=== PATIENT | female | born 1940 | race Caucasian/White ===

== ENCOUNTER → 2018-09-19 | Outpatient (CLI) | payer MEDICARE, OTHER ==
[2014-06-02 11:55] VITALS: BP 117/60
[~2018-09-19] MED LIST: GABA-587 PO; GLIM1TAB2 PO; OMEP20CA10 PO; SIMV40TA3 PO; SITA100T PO
--- NOTE | 2018-09-19 15:37 | RAD ---
Gastric Emptying Study 09/19/2018 Indication: Gastroparesis Procedure: Anterior and posterior projection static images are obtained over the stomach following oral administration of 2 mCi of 99 M technetium sulfur colloid in a solid meal (egg and toast). Time points include an immediate baseline, and 1, 2, 3, and 4 hours post ingestion. Findings: There is progressive emptying of the stomach on sequential images. Percentage retention at... One hour is 80.4% (normal 34.8-91%). Two hours 65% (normal 2.7-60%). Three hours 55% (normal 0.5-28%). Four hours 33% (normal 0-10%). Impression: Elevated gastric retention at T2-4 hours consistent with moderately delayed gastric emptying Consensus Recommendations for Gastric Emptying Scintigraphy: A Joint Report of the [place] [employer]astro[employer] Society and the Society of Nuclear Medicine: J. Nucl. Med. Technol. June 2007 vol. 36 no. 1 44-54 Grading for severity of delayed GE based on the 4-h value: grade 1 (mild): 11?20% retention at 4 h grade 2 (moderate): 21?35% retention at 4 h grade 3 (severe): 36?50% retention at 4 h grade 4 (very severe): >50% retention at 4 h. Electronically signed by: Chandu Brown MD (09/19/2018 3:34 PM) [id number]
== END | disposition home or self-care (01) ==
LOC: NM 09:01
PROVIDERS: ATTEND Internal Medicine Gastroenterology
DX: K31.89 Other diseases of stomach and duodenum (principal); K31.84 Gastroparesis; I10 Essential (primary) hypertension; E11.9 Type 2 diabetes mellitus without complications; Z87.891 Personal history of nicotine dependence
CPT/HCPCS: 78264; A9503

== ENCOUNTER → 2019-04-17 | Outpatient (CLI) | payer OTHER, MEDICAID ==
[2019-04-17] VITALS (7 sets, daily range): BP systolic 115–132; BP diastolic 51–97
[~2019-04-17] MED LIST changes: -GLIM1TAB2 PO; +GLIM1TAB7 PO; +IOHEXOL 240 MG/ML 50ML VIAL. ONE; +IOHEXOL 300 MG/ML 50 ML VIAL. IV ONE; +IV NORMAL SALINE 1,000ML 1,000 ML IV ONE; -OMEP20CA10 PO; +OMEP20CA16 PO; +SIMV40TA18 PO; -SIMV40TA3 PO
[2019-04-17 14:59] LABS: BASO # 0.1 x10^3/uL (0.0-0.2); BASO % 1 % (0-3); EOS # 0.1 x10^3/uL (0.0-0.7); EOS % 1 % (0-3); HEMATOCRIT 34.3 % (36.0-47.0); HEMOGLOBIN 10.8 g/dL (12.0-15.5); LYMPH # 1.7 x10^3/uL (1.0-4.8); LYMPH % 20 % (24-48); MEAN CORPUSCULAR HEMOGLOBIN 27 pg (25-35); MEAN CORPUSCULAR HGB CONC 32 g/dL (31-37); MEAN CORPUSCULAR VOLUME 87 fL (79-100); MONO % 11 % (0-9); NEUT # 5.9 x10^3uL (1.8-7.7); NEUT % 67 % (31-73); PLATELET COUNT 326 x10^3/uL (140-400); RED BLOOD COUNT 3.94 x10^6/uL (3.50-5.40); RED CELL DISTRIBUTION WIDTH 16.8 % (11.5-14.5); WHITE BLOOD COUNT 8.8 x10^3/uL (4.0-11.0)
[2019-04-17 15:00] LABS: CREATININE 1.6 mg/dL (0.6-1.0); GFR 31.1; POTASSIUM 5.1 mmol/L (3.5-5.1)
[2019-04-17 15:06] LABS: ALBUMIN 3.7 g/dL (3.4-5.0); ALBUMIN/GLOBULIN RATIO 1.1 (1.0-1.7); TOTAL BILIRUBIN 0.3 mg/dL (0.2-1.0); TOTAL PROTEIN 7.2 g/dL (6.4-8.2)
--- NOTE | 2019-04-17 16:52 | RAD ---
Examination: CT of the abdomen pelvis with oral and IV contrast HISTORY: History of diarrhea, abdominal pain COMPARISON: 10/15/2011 TECHNIQUE: Axial CT images of the abdomen pelvis were performed with oral and IV contrast. Coronal and sagittal reformats performed. Exposure: One or more of the following individualized dose reduction techniques were utilized for this examination: 1. Automated exposure control 2. Adjustment of the mA and/or kV according to patient size 3. Use of iterative reconstruction technique FINDINGS: Minimal bibasilar lung atelectasis and left lingular atelectasis. No evidence of free air identified in the abdomen. The liver, spleen, adrenals grossly appears unremarkable. The gallbladder is mildly distended. Surgical changes identified about the gastroesophageal junction. Mild distention of stomach. The gallbladder is mildly distended. Mild prominent appearing common bile duct. The visualized pancreas demonstrates few calcifications within. The small bowel is nondilated. Feces and gas noted in the colon. The mild fat stranding identified about the distal sigmoid colon could be mild colitis or mild diverticulitis the appendix is not clearly identified. There is mild fat stranding identified about the right colon. The bilateral kidneys enhance symmetrically. Small cystic structures identified in the bilateral kidneys with the largest measuring 1.1 cm in the left likely cysts. Mild prominent bilateral extrarenal pelvis. Mild fat stranding identified about the bilateral kidneys. Moderate degenerative changes thoracal lumbar spine. IMPRESSION: 1. Mild fat stranding identified about the bilateral kidneys, correlate for urinary tract infection. 2. Questionable fat stranding identified about the distal sigmoid colon could be mild colitis or diverticulitis. 2. The appendix is not clearly visualized however there is some minimal fat stranding identified about the right colon, nonspecific. Electronically signed by: Tod Ramírez MD (04/17/2019 4:50 PM) [facility] [id number]
--- NOTE | 2019-04-17 17:28 | NUR ---
decreased IVF NS to 250ml/hr as per order
== END | disposition home or self-care (01) ==
LOC: CT 14:21
PROVIDERS: ATTEND Specialist
DX: J98.11 Atelectasis (principal); N32.89 Other specified disorders of bladder; K86.89 Other specified diseases of pancreas; I10 Essential (primary) hypertension; E11.9 Type 2 diabetes mellitus without complications; F17.200 Nicotine dependence, unspecified, uncomplicated; Z79.01 Long term (current) use of anticoagulants
CPT/HCPCS: 36415; 74177; 80053; 85025; Q9967; J7030

== ENCOUNTER 2019-09-22 08:40 | Inpatient (IN) | payer OTHER ==
[~2019-09-22] VITALS: Ht 162.6 cm; Wt 62.5 kg
[~2019-09-22 08:40] MED LIST changes: -IOHEXOL 240 MG/ML 50ML VIAL. ONE; -IOHEXOL 300 MG/ML 50 ML VIAL. IV ONE; -IV NORMAL SALINE 1,000ML 1,000 ML IV ONE
[2019-09-22] MEDS ORDERED: IV NORMAL SALINE 1,000ML 1,000 ML IV ONE ×2 (08:42→10:45)
[2019-09-22] MEDS ORDERED: ONDANSETRON PF 4 MG/2 ML VIAL. ONE (08:45)
--- NOTE | 2019-09-22 08:57 | RAD ---
CT CODE STROKE HEAD WO History:Altered mental status Comparison: None. Technique: Noncontrast CT imaging was performed of the head. Exposure: One or more of the following individualized dose reduction techniques were utilized for this examination: 1. Automated exposure control 2. Adjustment of the mA and/or kV according to patient size 3. Use of iterative reconstruction technique. Findings: There is no evidence of acute intracranial hemorrhage or intra-axial mass effect. There is no midline shift. There is focus of subtle relative lower density of the left cerebellum. Ventricular size is within normal limits. There are some scattered ill-defined low-density of the supratentorial parenchyma bilaterally. There is atherosclerotic calcification of the bilateral carotid siphons and intradural vertebral arteries. Visualized paranasal sinuses and the mastoid air cells are overall aerated. Impression: 1. There is no evidence of acute intracranial hemorrhage. There is a focus of subtle lower density left cerebellum otherwise difficult to characterize by CT, more recent early subacute infarct not excluded. 2. There is other ill-defined low-density of the supratentorial parenchyma bilaterally, nonspecific findings more commonly due to chronic microvascular ischemic disease in a patient this age. Critical results were discussed with LANNY JONES at 09/22/2019 8:50 AM. Electronically signed by: Glenn Rodriguez MD (09/22/2019 8:54 AM) [id number]
[2019-09-22] MEDS ORDERED: ONDANSETRON PF 4 MG/2 ML VIAL. IVP ONE (09:00)
[2019-09-22] MEDS ORDERED: IOHEXOL 350 MG/ML 100 ML VIAL. IV ONE (09:15)
[2019-09-22 09:26] LABS: BGAS PH 7.33 (7.35-7.45)
[2019-09-22] MEDS ORDERED: CONTRAST GIVEN MC PRN (09:30)
--- NOTE | 2019-09-22 09:40 | PHYS DOC ---
Past History Past Medical History: Cancer (breast), CHF, COPD, Depression, Diabetes, GERD, Hypertension, Other Past Medical History Limited due to altered mental status Past Surgical History: Other Additional Past Surgical Histo: Right mastectomy Past Surgical History Limited due to altered mental status Alcohol Use: None Drug Use: None Social History Limited due to altered mental status General Adult EDM: Chief Complaint: NEURO SYMPTOMS/DEFICITS HPI: HPI: 79-year-old female presents via EMS after being found altered at [facility] this morning. Last known well was last night. Patient was reportedly found to have O2 saturation down to 44% on room air. Patient typically is on 3 L via nasal cannula and had not had her supplemental oxygen on at that time. EMS reports placing patient on nonrebreather with interval improvement of sats. During transport patient did vomit. Patient poor historian. No history of known trauma. History of present illness limited secondary to altered mental status. Review of Systems: Review of Systems: Review of systems limited due to altered mental status Current Medications: Current Meds: Current Medications Medications (Trade) Dose Ordered Sig/Candice Start Time Stop Time Status Last Admin Dose Admin Info (Do NOT chart on this entry -- for MONITORING) 1 each PRN DAILY PRN 09/22/19 09:30 09/24/19 09:29 Iohexol (Omnipaque 350 Mg/ml) 100 ml 1X ONCE 09/22/19 09:15 09/22/19 09:16 DC Ondansetron HCl (Zofran) 4 mg 1X ONCE 09/22/19 09:00 09/22/19 09:01 DC 09/22/19 09:25 4 MG Sodium Chloride 1,000 ml @ 1,000 mls/hr Q1H ONCE 09/22/19 08:42 09/22/19 09:41 09/22/19 09:25 1,000 MLS/HR Allergies: Allergies: Allergies Coded Allergies Type Severity Reaction Last Updated Verified aspirin Allergy Intermediate 06/02/14 Yes metformin Allergy Intermediate 06/02/14 Yes corn Adverse Reaction Intermediate Diarrhea 06/02/14 Yes Uncoded Allergies Type Severity Reaction Last Updated Verified greenbeans Adverse Reaction Intermediate Diarrhea 06/02/14 Physical Exam: PE: Constitutional: Elderly female with intermittent twitches, somnolence HENT: Normocephalic, atraumatic, oropharynx dry Eyes: PERRL, EOMI, conjunctiva normal, no discharge Neck: Normal range of motion, no tenderness, supple Cardiovascular: Heart rate normal, regular rhythm Lungs & Thorax: Coarse breath sounds bilaterally, no respiratory distress noted Abdomen: Soft, distended, no guarding Skin: Warm, dry, no erythema, no rash Extremities: No tenderness, ROM intact, no edema Neurologic: Alert and oriented X name only, diffuse weakness noted, speech limited and requires stimulation, GCS 12 (eye 3, verbal 3, motor 6) Psychologic: Limited, judgment abnormal Current Patient Data: Labs: Laboratory Tests Test 09/22/19 09:00 Blood pH 7.33 (7.35-7.45) L Blood Gas PCO2 67 mmHg (35-45) *H Blood Gas PO2 59 mmHg (71-100) L Blood Gas HCO3 36 mmol/L (22-26) H Arterial Bld O2 Saturation (Calc) 88 % (92-99) L FiO2 36 % Vital Signs: Vital Signs Date Time Temp Pulse Resp B/P (MAP) Pulse Ox O2 Delivery O2 Flow Rate FiO2 09/22/19 08:40 98.0 98 22 174/74 (107) 96 Nasal Cannula 6.0 EKG: EKG: @0855 NSR at 89bpm, NO ST elevation, Q wave III, QRS 92ms, QT/QTc 366/446ms @1234 NSR at 89bpm, NO ST elevation, significant baseline artifact noted in I- avF. QRS 88ms, QT/QTc 382/466ms Radiology/Procedures: Radiology/Procedures: PROCEDURE: CT CODE STROKE HEAD WO History:Altered mental status Comparison: None. Technique: Noncontrast CT imaging was performed of the head. Exposure: One or more of the following individualized dose reduction techniques were utilized for this examination: 1. Automated exposure control 2. Adjustment of the mA and/or kV according to patient size 3. Use of iterative reconstruction technique. Findings: There is no evidence of acute intracranial hemorrhage or intra-axial mass effect. There is no midline shift. There is focus of subtle relative lower density of the left cerebellum. Ventricular size is within normal limits. There are some scattered ill-defined low-density of the supratentorial parenchyma bilaterally. There is atherosclerotic calcification of the bilateral carotid siphons and intradural vertebral arteries. Visualized paranasal sinuses and the mastoid air cells are overall aerated. Impression: 1. There is no evidence of acute intracranial hemorrhage. There is a focus of subtle lower density left cerebellum otherwise difficult to characterize by CT, more recent early subacute infarct not excluded. 2. There is other ill-defined low-density of the supratentorial parenchyma bilaterally, nonspecific findings more commonly due to chronic microvascular ischemic disease in a patient this age. Critical results were discussed with LANNY JONES at 09/22/2019 8:50 AM. Electronically signed by: Glenn Rodriguez MD (09/22/2019 8:54 AM) [id number] PROCEDURE: CT CHEST ABDOMEN PELVIS WO EXAM: CT Chest, Abdomen, and Pelvis without IV contrast INDICATION: Reason: SOA, abdominal pain, N/V, concern for obstruction and aspiration / Spl. Instructions: NO CONTRAST DUE TO ELEVATED CREATININE / History: TECHNIQUE: Multi-detector row CT images were acquired from the thoracic inlet through the ischial tuberosities without the use of IV contrast. Sagittal and coronal images were acquired from the transaxial data. All CT scans performed at this facility utilize dose optimization techniques as appropriate to the exam, including the following: Automated exposure control and adjustment of the mA and/or KV according to patient size (this includes techniques or standardized protocols for targeted exams where dose is indication/reason for exam). ORAL CONTRAST: Not administered COMPARISON: Abdomen and pelvis CT with IV contrast of 04/17/2019. FINDINGS: The absence of IV contrast limits evaluation of soft tissue pathology. CHEST: CARDIOVASCULAR: Multivessel coronary calcification. Upper normal heart size. No pericardial effusion. Extensive thoracic aortic calcifications. No aneurysm. MEDIASTINUM & AAKASH: Frothy fluid in the esophagus, extending up to the sternal notch. LUNGS: Patchy airspace opacities in the lower lobes predominantly, left greater than right is present. There is some respiratory motion artifact that degrades detail. PLEURAL SPACE: No pleural effusions or pneumothorax. OSSEOUS & SOFT TISSUE: Unremarkable ABDOMEN/PELVIS: LIVER: Unremarkable BILIARY SYSTEM: Gallbladder is mildly distended and contains layering density that could reflect sludge or stones.. Bile ducts are not dilated. PANCREAS: Unremarkable SPLEEN: Unremarkable ADRENALS: Unremarkable KIDNEYS & URETERS: Unremarkable BLADDER: Hoover catheter in the urinary bladder. REPRODUCTIVE ORGANS: Hysterectomy. GASTROINTESTINAL: Surgical clips at the hiatus are suggestive of previous hiatal hernia surgery repair. No findings of bowel obstruction, perforation or acute inflammation are identified. There are scattered colonic diverticuli. The appendix is well seen but there are no findings of acute appendicitis.. MESENTERY/PERITONEUM/RETROPERITONEUM: Unremarkable VASCULAR: Extensive arterial calcification with no aneurysmal dilation of the abdominal aorta. LYMPH NODES: No adenopathy OSSEOUS & SOFT TISSUES: No acute or aggressive osseous lesions. There is mild levoscoliosis of the lumbar spine. IMPRESSION: 1. Bilateral lower lobe predominant left greater than right patchy airspace opacities and fluid in the majority of the thoracic esophagus are compatible with the clinical suspicion of aspiration pneumonitis. Consider enteric decompression if clinically appropriate. Patient does have surgical clips at the hiatus suggestive of previous hiatal hernia repair. 2. No CT evidence of bowel obstruction, perforation or acute inflammation. Electronically signed by: Kennedi Hatch MD (09/22/2019 10:47 AM) [id number] Course & Med Decision Making: Course & Med Decision Making Pertinent Labs and Imaging studies reviewed. (See chart for details) Patient presents after being found hypoxic at [facility] with last known well last night. Code stroke called upon patient's arrival and immediate CT head obtained. Patient appears generally weak throughout and very somnolent. Alert and oriented to name only. Unsure regarding patient's baseline. No focal deficit appreciated. NIHSS 14. CT head immediately obtained with questionable area to left cerebellar region. Labs obtained and posted to chart. Creatinine elevated. CTA head and neck therefore not obtained. Lactic acid elevated. CT chest/abd/pelvis with concern for aspiration pneumonia. Patient meeting severe sepsis criteria. SIRS positive for HR >90, RR > 20. Source of infection of pneumonia noted. IVF sepsis bolusing provided. Emipiric antibiotics given. Patient requiring admission for further evaluation and treatment. Discussed with Dr. Webber (hospitalist) who is in agreement with admission. Discussed findings and plan with patient, who acknowledges understanding and agreement. Dragon Disclaimer: Dragant Disclaimer: This electronic medical record was generated, in whole or in part, using a voice recognition dictation system. Departure Departure: Impression: Primary Impression: Altered mental status Qualified Codes: R41.82 - Altered mental status, unspecified Additional Impressions: Severe sepsis Aspiration pneumonia Qualified Codes: J69.0 - Pneumonitis due to inhalation of food and vomit Hypoxia Disposition: ADMITTED INPATIENT Admitting Physician: Deepak Webber Condition: GUARDED Referrals: VITALIY JACOB MD (PCP) Justification of Admission: Justification of Admission: Justification of Admission Dx: Yes Aspiration Pneumonia: Hemodynamic Instability Sepsis: Altered Mental Status Altered Mental Status: Altered Mental Status NIHSS - ED NIH Stroke Scale: NIH Stroke Scale Response (Comments) Value Level of Consciousness: 1 Not alert/arousable 1 LOC Questions: 1 Answers one correctly 1 LOC Commands: 0 Performs both tasks 0 Best Gaze: 0 Normal 0 Visual: 0 No visual loss 0 Facial Palsy: 0 Normal, symmetrical 0 Motor - Left Arm 2 Some effort 2 Motor - Right Arm 2 Some effort 2 Motor - Left Leg 2 Some effort 2 Motor: Right Leg 2 Some effort 2 Limb Ataxia: 2 Two limbs 2 Sensory: 0 No loss 0 Best Language: 1 Mild to mod aphasia 1 Dysathria: 1 Mild to moderate 1 Extinction and Inattention: 0 Normal 0 Total 14 Critical Care Time Critical care time was 30 minutes which includes time at bedside, spent in discussion of patient's care with specialists and/or family members, with interpretation of laboratory and/or radiological studies and is exclusive of procedures. Sepsis Assessment Date and Time of Assessment Date: Sep 22, 2019 Time: 12:00 Fluid Challenge: Is the fluid challenge complet: No IBW Target Volume Used: No BMI > 30: No Vital Signs Vital Signs Vital Signs Date Time Temp Pulse Resp B/P (MAP) Pulse Ox O2 Delivery O2 Flow Rate FiO2 09/22/19 14:20 101.2 79 20 171/75 (107) 97 Nasal Cannula 2.0 Temperature Source: Axillary Respirations Respiratory Effort: Normal Respiratory Pattern: Normal Cardiovascular Pulse Rhythm: Regular Heart: Nml rate, reg. rhythm Lung Sounds Breath Sounds: Coarse Capillary Refill Capillary Refill: Rt Hand < 3 seconds Peripheral Pulse Pulse Location: Radial Pulse Strength: Normal (2+) Pulse Assessment Method: Palpation Integumentary Skin: Warm, Dry Skin Moisture: Dry Skin Turgor: Normal Skin Color: warm, dry Fingernail Color: LANYN WEATHERS DO Sep 22, 2019 09:40
[2019-09-22 09:47] LABS: BASO # 0.1 x10^3/uL (0.0-0.2); BASO % 1 % (0-3); EOS % 0 % (0-3); HEMATOCRIT 38.2 % (36.0-47.0); HEMOGLOBIN 12.3 g/dL (12.0-15.5); LYMPH # 0.9 x10^3/uL (1.0-4.8); LYMPH % 8 % (24-48); MEAN CORPUSCULAR HEMOGLOBIN 30 pg (25-35); MEAN CORPUSCULAR HGB CONC 32 g/dL (31-37); MEAN CORPUSCULAR VOLUME 93 fL (79-100); MONO # 0.6 x10^3/uL (0.0-1.1); MONO % 6 % (0-9); NEUT # 9.4 x10^3uL (1.8-7.7); NEUT % 86 % (31-73); PLATELET COUNT 245 x10^3/uL (140-400); RED BLOOD COUNT 4.12 x10^6/uL (3.50-5.40); RED CELL DISTRIBUTION WIDTH 16.1 % (11.5-14.5); WHITE BLOOD COUNT 10.9 x10^3/uL (4.0-11.0)
[2019-09-22 09:49] LABS: MAGNESIUM 1.6 mg/dL (1.8-2.4)
[2019-09-22 10:04] LABS: BILIRUBIN,URINE NEG (NEG); CLARITY,URINE CLEAR; COLOR,URINE YELLOW; GLUCOSE,URINE NEG (NEG)
[2019-09-22 10:05] LABS: BACTERIA,URINE FEW /HPF (0-FEW); HYALINE CASTS, URINE OCC /HPF; NITRITE,URINE NEG (NEG); RBC,URINE RARE /HPF (0-2); SQUAMOUS EPITHELIAL CELL,UR OCC /LPF; UROBILINOGEN,URINE 0.2 mg/dL (0.2 mg/dL); WBC,URINE OCC /HPF (0-4)
[2019-09-22 10:06] LABS: CALCIUM 9.7 mg/dL (8.5-10.1); POTASSIUM 4.9 mmol/L (3.5-5.1)
[2019-09-22 10:11] LABS: ALBUMIN 3.9 g/dL (3.4-5.0); ALBUMIN/GLOBULIN RATIO 1.1 (1.0-1.7); TOTAL BILIRUBIN 0.5 mg/dL (0.2-1.0); TOTAL PROTEIN 7.6 g/dL (6.4-8.2)
[2019-09-22] MEDS ORDERED: MAGNESIUM SULFATE 2GM 50 ML IV ONE (10:45)
--- NOTE | 2019-09-22 10:49 | RAD ---
EXAM: CT Chest, Abdomen, and Pelvis without IV contrast INDICATION: Reason: SOA, abdominal pain, N/V, concern for obstruction and aspiration / Spl. Instructions: NO CONTRAST DUE TO ELEVATED CREATININE / History: TECHNIQUE: Multi-detector row CT images were acquired from the thoracic inlet through the ischial tuberosities without the use of IV contrast. Sagittal and coronal images were acquired from the transaxial data. All CT scans performed at this facility utilize dose optimization techniques as appropriate to the exam, including the following: Automated exposure control and adjustment of the mA and/or KV according to patient size (this includes techniques or standardized protocols for targeted exams where dose is indication/reason for exam). ORAL CONTRAST: Not administered COMPARISON: Abdomen and pelvis CT with IV contrast of 04/17/2019. FINDINGS: The absence of IV contrast limits evaluation of soft tissue pathology. CHEST: CARDIOVASCULAR: Multivessel coronary calcification. Upper normal heart size. No pericardial effusion. Extensive thoracic aortic calcifications. No aneurysm. MEDIASTINUM & AAKASH: Frothy fluid in the esophagus, extending up to the sternal notch. LUNGS: Patchy airspace opacities in the lower lobes predominantly, left greater than right is present. There is some respiratory motion artifact that degrades detail. PLEURAL SPACE: No pleural effusions or pneumothorax. OSSEOUS & SOFT TISSUE: Unremarkable ABDOMEN/PELVIS: LIVER: Unremarkable BILIARY SYSTEM: Gallbladder is mildly distended and contains layering density that could reflect sludge or stones.. Bile ducts are not dilated. PANCREAS: Unremarkable SPLEEN: Unremarkable ADRENALS: Unremarkable KIDNEYS & URETERS: Unremarkable BLADDER: Hoover catheter in the urinary bladder. REPRODUCTIVE ORGANS: Hysterectomy. GASTROINTESTINAL: Surgical clips at the hiatus are suggestive of previous hiatal hernia surgery repair. No findings of bowel obstruction, perforation or acute inflammation are identified. There are scattered colonic diverticuli. The appendix is well seen but there are no findings of acute appendicitis.. MESENTERY/PERITONEUM/RETROPERITONEUM: Unremarkable VASCULAR: Extensive arterial calcification with no aneurysmal dilation of the abdominal aorta. LYMPH NODES: No adenopathy OSSEOUS & SOFT TISSUES: No acute or aggressive osseous lesions. There is mild levoscoliosis of the lumbar spine. IMPRESSION: 1. Bilateral lower lobe predominant left greater than right patchy airspace opacities and fluid in the majority of the thoracic esophagus are compatible with the clinical suspicion of aspiration pneumonitis. Consider enteric decompression if clinically appropriate. Patient does have surgical clips at the hiatus suggestive of previous hiatal hernia repair. 2. No CT evidence of bowel obstruction, perforation or acute inflammation. Electronically signed by: Kennedi Hatch MD (09/22/2019 10:47 AM) [id number]
[2019-09-22] MEDS ORDERED: PIPERACILLIN/TAZOBACTAM 2.25 GM in IV NORMAL SALINE 50ML 50 ML IV ONE (11:00)
[2019-09-22] MEDS ORDERED: IV NORMAL SALINE 1,000ML 1,000 ML IV SCH ×2 (12:03→14:00)
[2019-09-22] MEDS ORDERED: NALOXONE 0.4 MG/ML VIAL. IV ONE ×2 (12:15)
[2019-09-22] MEDS ORDERED: ONDANSETRON PF 4 MG/2 ML VIAL. IVP PRN (12:15)
--- NOTE | 2019-09-22 12:48 | HP ---
ADMIT DATE: 09/22/2019 ATTENDING PHYSICIAN: Dr. Loza. CHIEF COMPLAINT: Altered mentation and decreased saturation. HISTORY OF PRESENT ILLNESS: The patient is an 79-year-old shelter resident, sent over for further evaluation. Earlier this morning, she had altered mentation and increased responsiveness. She clinically has vomiting. There was evidence of probable aspiration. CT of the head demonstrated no acute changes. There is questionable small area of ischemia in the cerebellum, which may or may not be relevant. CT of the abdomen demonstrated evidence of aspiration pneumonia as a cut into the bases. There is definite infiltrate. She is rather lethargic. She is diabetic. She is on multiple medications including pain meds and trazodone. She is on a diuretic. Creatinine is elevated at 2.0. I do not know what her baseline is. She clearly has decreased clearance. Narcan was administered. She is admitted then with most likely aspiration pneumonia related to vomiting. PAST MEDICAL HISTORY: Significant for breast cancer with previous right mastectomy, congestive heart failure, compensated COPD, major depression, diabetes type 2, gastroesophageal reflux disease, essential hypertension and generalized debilitation. Whether or not dementia is an issue remains to be seen. Please note that her nonfasting blood sugar today was 255. CURRENT MEDICATIONS: Her lists of medications were reviewed from the shelter that include the following. She was taking Lasix and potassium supplementation along with aspirin. She was also getting albuterol, Fosamax, Lipitor, calcium citrate, Coreg 3.125 mg b.i.d., Zyrtec, Celexa, Plavix, Voltaren, Lasix, Neurontin, Amaryl, guaifenesin, NovoLog insulin, lansoprazole eyedrops, Lidoderm patch, lisinopril 2.5 mg daily, loperamide, Naprosyn tablets 500 mg 3 times a day, omeprazole, Zocor, Januvia and trazodone. ALLERGIES: She has allergies to ASPIRIN, although she is on baby aspirin at this time. GREEN BEANS and METFORMIN, exact etiology is unclear. According to the record, she has chronic kidney disease stage 3. I do not know what her baseline creatinine is. She also has essential hypertension along with her COPD. FAMILY HISTORY: Unobtainable. REVIEW OF SYSTEMS: Significant for the reports from the shelter. She could not give me much detail. She remains very confused. PHYSICAL EXAMINATION: VITAL SIGNS: In the ED, her vital signs showed a blood pressure of 144/70, pulse is 85 and regular, temperature 98.0 degrees Fahrenheit, oxygen saturation 99% on 6 liters nasal cannula. HEENT: Head is without trauma. Pupils are reactive. Sclerae is nonicteric. Oropharynx appeared clear. NECK: Supple, no bruits identified. LUNGS: Shallow respirations. CARDIOVASCULAR: Showed distant heart tones. No obvious gallops. Peripheral pulses are palpable and full. ABDOMEN: Soft. No guarding, rebound or tenderness. Bowel sounds are hypoactive. There is some fullness in the lower abdomen consistent with stool. EXTREMITIES: Showed trace edema. NEUROLOGIC: The patient is confused. She is not able to give a legitimate history. No other family members available. IMAGING STUDIES: CT of the head demonstrated no evidence of acute intracranial hemorrhage. There is a focus of subtle low density in the left cerebellum, otherwise nonspecific, certainly subacute infarct could not be excluded. There is also an ill-defined low density of the supratentorial parenchyma consistent with chronic microvascular changes. CT of the abdomen and pelvis cut into her bases. There is bilateral lower lobe infiltrate consistent with patchy airspace opacities. The patient has surgical clips at the hiatus that are just in previous hiatal hernia repair. No CT evidence of bowel perforation or acute inflammation. Her hemoglobin was 12.3 g/dL with white count of 10,900. LABORATORY DATA: Her creatinine is 2.0 mg/dL, BUN 28, potassium 4.9 mEq, nonfasting blood sugar 255. Liver panel is unremarkable. ASSESSMENT: 1. An 79-year-old white female, shelter patient with probable vomiting and aspiration pneumonia. 2. Altered mentation from decreased clearance and her medications especially narcotics and trazodone. 3. Type 2 diabetes mellitus. 4. Chronic kidney disease stage 3. 5. History of ventral hernia. 6. Essential hypertension. 7. Altered mentation. 8. Degenerative joint disease. 9. Underlying dementia. PLAN: 1. Admit to the inpatient unit. 2. Gentle IV hydration. 3. Antibiotic therapy has been initiated. 4. Home meds have been reviewed and will be started intermittently. 5. Narcan administered. 6. We will hold narcotics. 7. I should contact the power of subway guard to ascertain her code status. Her prognosis is guarded. SHERRIE LOZA MD DR: BIBIANA/kina JOB#: [id number] / [id number]
[2019-09-22] MEDS ORDERED: PIPERACILLIN/TAZOBACTAM 3.375 GM in IV NORMAL SALINE 50ML 50 ML IV SCH (14:00)
[2019-09-22] MEDS ORDERED: DEXTROSE 50% 25 GM / 50ML DISP.SYRIN. IV PRN (14:00)
[2019-09-22 14:20] VITALS: BP 171/75
[2019-09-22] MEDS: IV NORMAL SALINE 1,000ML 1,000 ML IV PRN (14:31)
--- NOTE | 2019-09-22 14:41 | EKG ---
[address] [address] Test Date: 2019-09-22 Test Time: 12:34:44 Pat Name: JEFFY CORONA Department: Room: 105 A Gender: F Bench Precision Assembler: : 1940 Requested By: LANNY JONES Order Number: [id number] Reading MD: Brian De Anda Measurements Intervals [place] Rate: 89 P: 133 SD: 150 QRS: 142 QRSD: 88 T: 109 QT: 382 QTc: 466 Interpretive Statements SINUS RHYTHM ABNORMAL RIGHT AXIS DEVIATION NONSPECIFIC ST-T WAVE CHANGES. Electronically Signed On 09-22-2019 16:51:00 CDT by Brian De Anda
--- NOTE | 2019-09-22 14:42 | EKG ---
[address] [address] Test Date: 2019-09-22 Test Time: 08:55:58 Pat Name: JEFFY CORONA Department: Room: 105 A Gender: F Director Of Quality Control: : 1940 Requested By: LANNY JONES Order Number: [id number] Reading MD: Brian De Anda Measurements Intervals [place] Rate: 89 P: -6 MS: 156 QRS: 62 QRSD: 92 T: 86 QT: 366 QTc: 446 Interpretive Statements SINUS RHYTHM T ABNORMALITY IN ANTERIOR LEADS NONSPECIFIC ST-T WAVE CHANGES. Electronically Signed On 09-22-2019 16:49:09 CDT by Brian De Anda
--- NOTE | 2019-09-22 15:41 | NUR ---
PATIENT IS 79 Y O F, JEFFY CORONA, ADMITTED TO MED SURG, [facility]. PT WAS DROWSY DURING ADMISSION ASSESSMENT, UNABLE TO ANSWER ANY QUESTIONS. PT HAS TEMP 101.2 AXILLARY, TROPONIN IS ELEVATED AT 0.131, NOTIFIED, DR. LOZA REQUESTED TO CHANGE TROPONIN TIME TO 09/23/19 0600. IV INFUSION OF NS INITIATED, PT BELONGINGS OBTAINED AND CHARTED. WILL CONTINUE TO MONITOR.
[2019-09-22] MEDS: PIPERACILLIN/TAZOBACTAM 3.375 GM in IV NORMAL SALINE 50ML 50 ML IV SCH (17:18)
[2019-09-22] MEDS ORDERED: METO5TAB55 PO (18:36)
[2019-09-22] MEDS ORDERED: CARV3.12 PO (18:36)
[2019-09-22] MEDS ORDERED: CITA10TA4 PO (18:36)
[2019-09-22] MEDS ORDERED: CHOL500021 PO (18:36)
[2019-09-22] MEDS ORDERED: LOPE-101 PO (18:36)
[2019-09-22] MEDS ORDERED: ATOR10TA60 PO (18:36)
[2019-09-22] MEDS ORDERED: FURO-69 PO (18:36)
[2019-09-22] MEDS ORDERED: PANT20TA58 PO (18:36)
[2019-09-22] MEDS ORDERED: ALBU2.5V8 INH (18:36)
[2019-09-22] MEDS ORDERED: IPRA3AMP29 NEB (18:36)
[2019-09-22] MEDS ORDERED: HYDR-3165 PO (18:36)
[2019-09-22] MEDS ORDERED: NAPR-514 PO (18:36)
[2019-09-22] MEDS ORDERED: LIDO700A21 TP (18:36)
[2019-09-22] MEDS ORDERED: LISI2.5T PO (18:36)
[2019-09-22] MEDS ORDERED: TRAZ-120 PO (18:36)
[2019-09-22] MEDS ORDERED: ACET500T68 PO (18:36)
[2019-09-22] MEDS ORDERED: CLOP75TA PO (18:36)
[2019-09-22] MEDS ORDERED: GUAI400T78 PO (18:36)
[2019-09-22] MEDS ORDERED: INSU100I17 SQ (18:37)
[2019-09-22] MEDS ORDERED: DICL100G28 TP (18:37)
--- NOTE | 2019-09-22 19:02 | NUR ---
NSG NOTE; DNR CODE STATUS ORDER FROM DR LOZA CONFIRMED WITH SEPIDEH SPRING. DNR PAPERWORK RECEIVED FROM
[2019-09-22 19:22] VITALS: BP 135/53
[2019-09-22 22:48] VITALS: BP 127/58
[2019-09-23] MEDS: PIPERACILLIN/TAZOBACTAM 3.375 GM in IV NORMAL SALINE 50ML 50 ML IV SCH ×3 (01:05→16:53)
[2019-09-23] MEDS: IV NORMAL SALINE 1,000ML 1,000 ML IV PRN ×2 (05:31→21:04)
[2019-09-23 05:45] VITALS: BP 117/59
--- NOTE | 2019-09-23 06:21 | NUR ---
Pt afebrile this shift. Sats remained mid to upper 90's on 2L NC. Pt slept through much of the night but did awaken periodically for snack and drink, tolerated well. Alert to self and place. Pleasant and cooperative.
--- NOTE | 2019-09-23 08:25 | EKG ---
[address] [address] Test Date: 2019-09-23 Test Time: 08:21:43 Pat Name: JEFFY CORONA Department: Room: 105 A Gender: F Dedicated Driver: : 1940 Requested By: SHERRIE LOZA Order Number: [id number] Reading MD: Sukhdev Woodard MD Measurements Intervals [place] Rate: 66 P: IA: QRS: -86 QRSD: 98 T: -164 QT: 516 QTc: 543 Interpretive Statements REGULAR RHYTHM BASELINE ARTIFACT RECOMMEND REPEAT EKG Electronically Signed On 09-25-2019 13:13:32 CDT by Sukhdev Woodard MD
[2019-09-23 08:27] LABS: HEMATOCRIT 31.8 % (36.0-47.0); RED BLOOD COUNT 3.36 x10^6/uL (3.50-5.40); RED CELL DISTRIBUTION WIDTH 16.1 % (11.5-14.5); WHITE BLOOD COUNT 11.3 x10^3/uL (4.0-11.0)
[2019-09-23] MEDS ORDERED: PHENAZOPYRIDINE 100 MG TABLET. PO PRN (08:45)
[2019-09-23 08:46] LABS: GFR 36.2
[2019-09-23] MEDS: LACTOBACILLUS RHAMNOSUS GG 1 CAPSULE. PO SCH ×2 (09:32→20:56)
[2019-09-23] MEDS: CARVEDILOL 3.125 MG TABLET PO SCH ×2 (09:33→21:03)
[2019-09-23] MEDS: CLOPIDOGREL BISULFATE 75 MG TABLET PO SCH (09:33)
[2019-09-23] MEDS: CITALOPRAM 10 MG TABLET. PO SCH (09:33)
[2019-09-23] MEDS: CHOLECALCIFEROL (VITAMIN D3) 50,000 UNIT CAPSULE PO SCH (09:33)
[2019-09-23] MEDS: ATORVASTATIN CALCIUM 10 MG TABLET. PO SCH (09:33)
[2019-09-23] MEDS: LISINOPRIL 2.5 MG TABLET PO SCH (09:33)
[2019-09-23 09:38] LABS: CREATININE 1.4 mg/dL (0.6-1.0)
[2019-09-23 09:43] LABS: CALCIUM 8.3 mg/dL (8.5-10.1)
[2019-09-23 09:44] LABS: POTASSIUM 4.3 mmol/L (3.5-5.1)
[2019-09-23 10:13] VITALS: BP_SYST 116
--- NOTE | 2019-09-23 11:19 | PN ---
DATE: 09/23/2019 ATTENDING PHYSICIAN: Sherrie Loza MD CHIEF COMPLAINT: Obtundation. SUBJECTIVE: The patient is awake. She is still very weak, but we had a very succinct conversation. She states "I ache all over." She has no localizing symptoms. We held most of her meds and I am in the process of restarting some of her home meds. She clearly was over medicated with 30 medications listed. She did respond to Narcan and we have held her narcotics. OBJECTIVE FINDINGS: VITAL SIGNS: Her rhythm shows artifact due to her underlying tremor and Parkinson's disease. After monitoring her and getting 12-lead, she is in a sinus rhythm with a rate of 68 per minute. Her blood pressure is 117/59 mmHg. Her temperature is 98.2 degrees Fahrenheit, and her saturations are 99% on 2 liters of nasal cannula. HEENT: Head is without trauma. Pupils are reactive. Sclerae nonicteric. Oropharynx is clear. NECK: Supple, no bruits identified. LUNGS: Shallow respirations. Minimal rhonchi at the bases. CARDIOVASCULAR: Showed distant heart tones. No obvious gallops. Peripheral pulses are palpable and full. ABDOMEN: Soft, scaphoid, nontender, no organomegaly. Bowel sounds are hypoactive. EXTREMITIES: Showed trace edema. NEUROLOGIC: Underlying baseline tremor. She is very weak. She has no focal deficit. She is bedridden. LABORATORY STUDIES: Troponin on admission was 0.13, repeat is 0.25. Her creatinine is 2.0 mg percent yesterday. I believe that the elevation of troponin is due to stress and decreased clearance from renal function. The EKG is nondiagnostic. Chest x-ray shows bibasilar infiltrates, slight in nature. ASSESSMENT: 1. An 79-year-old prison patient with aspiration pneumonia. 2. Altered mentation due to decreased clearance of meds and narcotics, resolved. 3. Type 2 diabetes mellitus. 4. Chronic kidney disease stage 3. 5. History of ventral hernia. 6. Essential hypertension. 7. Underlying dementia. 8. Degenerative joint disease. 9. Elevation of troponin due to stress demand as well as decreased clearance. PLAN: 1. Continue gentle IV hydration. 2. Diuretics have been held. 3. Continue antibiotics. 4. We will initiate her beta blockers, Plavix, aspirin and p.r.n. nitrates for medical management. 5. Narcan administered, narcotics have been held. 6. Simplification of home meds. 7. Diabetic diet as tolerated. 8. Follow up chemistries and CBC. She is a DNR per advanced directives and we will respect her wishes. Her prognosis is guarded. We will try to contact the family later today. SHERRIE LOZA MD DR: BIBIANA/kina JOB#: [id number] / [id number]
[2019-09-23 15:40] VITALS: BP 139/51
[2019-09-23 19:30] VITALS: BP 127/55
[2019-09-23] MEDS: MAGNESIUM OXIDE 400 MG TABLET PO SCH (20:56)
--- NOTE | 2019-09-23 22:06 | NUR ---
Pt made comfortable by removing blankets from bed. Pt states she is "warm blooded" and requested ice water during rounds. Pt c/o pain in tongue. It is "sore and makes it difficult to eat." Also "started since she got here" and "had it for a long time" so beginning of pain hard to discern. Tongue appears pink at the tip and black/johns mid to near back of the tongue. "Furry appearance" not noted. Pt stated pain is 10/10 on tongue, using ice water to help diminish pain level. Pt watching television and talking on the telephone. Will continue to monitor.
[2019-09-23 23:18] VITALS: BP 102/52
[2019-09-23] MEDS ORDERED: ACETAMINOPHEN 325 MG TABLET PO ONE (23:30)
[2019-09-24] MEDS: PIPERACILLIN/TAZOBACTAM 3.375 GM in IV NORMAL SALINE 50ML 50 ML IV SCH ×3 (00:48→16:59)
[2019-09-24 06:44] VITALS: BP 95/55
[2019-09-24] MEDS: LACTOBACILLUS RHAMNOSUS GG 1 CAPSULE. PO SCH ×2 (08:06→20:55)
[2019-09-24] MEDS: ATORVASTATIN CALCIUM 10 MG TABLET. PO SCH (08:06)
[2019-09-24] MEDS: LISINOPRIL 2.5 MG TABLET PO SCH (08:06)
[2019-09-24] MEDS: MAGNESIUM OXIDE 400 MG TABLET PO SCH ×2 (08:06→20:55)
[2019-09-24] MEDS: PANTOPRAZOLE 40 MG TABLET. PO SCH (08:06)
[2019-09-24] MEDS: CITALOPRAM 10 MG TABLET. PO SCH (08:06)
[2019-09-24] MEDS: CLOPIDOGREL BISULFATE 75 MG TABLET PO SCH (08:07)
[2019-09-24] MEDS: CARVEDILOL 3.125 MG TABLET PO SCH ×2 (08:07→20:55)
[2019-09-24] MEDS: CHOLECALCIFEROL (VITAMIN D3) 50,000 UNIT CAPSULE PO SCH (08:08)
[2019-09-24 10:25] VITALS: BP 117/62
--- NOTE | 2019-09-24 11:09 | PN ---
DATE: 09/24/2019 ATTENDING PHYSICIAN: Sherrie Loza MD CHIEF COMPLAINT: Obtundation. SUBJECTIVE: The patient is alert. She slept well. She is eating. She has been up in a chair. She has no new complaints. She denied any dyspnea. OBJECTIVE FINDINGS: VITAL SIGNS: Temperature is 97.7 degrees Fahrenheit, blood pressure is 138/49, pulse 62 and regular, oxygen saturation 98% on 2 liters of nasal cannula. HEENT: Head is without trauma. Pupils are reactive. Oropharynx clear. NECK: Supple. No bruits identified. LUNGS: Good breath sounds. Diminished breath sounds at the bases. CARDIOVASCULAR: Showed distant heart tones. No obvious gallops. Peripheral pulses are palpable and full. ABDOMEN: Soft, nontender, no organomegaly. Bowel sounds are hypoactive. EXTREMITIES: Showed no cyanosis or edema. NEUROLOGIC: Neurologic function is focally intact. No deficits. PERTINENT LABORATORY STUDIES: Repeat chemistry showed a creatinine of 1.4 mg/dL, which is improved. BUN is down to 22. Potassium and sodium are within normal range. ASSESSMENT 1. An 79-year-old female, jail resident, obtundation due to narcotics, resolved. 2. Early aspiration pneumonia. 3. Chronic kidney disease stage 3. 4. History of ventral hernia. 5. Essential hypertension, normotensive. 6. Underlying dementia. 7. Degenerative arthritis. 8. Elevation of troponin due to stress demand, no symptoms at this time. PLAN: 1. We can discontinue IV fluids. 2. Continue antibiotics. 3. Follow up chest x-ray. 4. Up in chair as tolerated. 5. Continue beta blockers, Plavix and aspirin. 6. Hold narcotics. 7. Diabetic bowel as tolerated. 8. Tentative discharge plans [facility] jail. SHERRIE LOZA MD DR: BIBIANA/kina JOB#: [id number] / [id number]
--- NOTE | 2019-09-24 12:07 | RAD ---
EXAM: AP View of the chest DATE: 09/24/2019 9:16 AM INDICATION: CRACKLES AUSCULTATED IN BILATERAL BASES; ASPIRATIONAL PNEUMONIA COMPARISON: No Prior FINDINGS/ IMPRESSION: Heart is mildly enlarged. Atherosclerotic calcifications of the tortuous aorta are seen. Left greater than right lung base airspace opacities and interstitial prominence likely developing consolidation or atelectasis. No pleural effusion or pneumothorax. Electronically signed by: Jesse Montes MD (09/24/2019 12:04 PM) [place] [id number]
[2019-09-24 15:16] VITALS: BP 151/89
[2019-09-24 19:35] VITALS: BP 149/65
[2019-09-24] MEDS: ACETAMINOPHEN 325 MG TABLET PO PRN (20:55)
[2019-09-24 23:30] VITALS: BP 155/72
[2019-09-25] MEDS: PIPERACILLIN/TAZOBACTAM 3.375 GM in IV NORMAL SALINE 50ML 50 ML IV SCH ×3 (01:55→17:30)
[2019-09-25] MEDS: ATORVASTATIN CALCIUM 10 MG TABLET. PO SCH (07:44)
[2019-09-25] MEDS: LACTOBACILLUS RHAMNOSUS GG 1 CAPSULE. PO SCH ×2 (07:44→20:14)
[2019-09-25] MEDS: ACETAMINOPHEN 325 MG TABLET PO PRN ×2 (07:44→20:14)
[2019-09-25] MEDS: MAGNESIUM OXIDE 400 MG TABLET PO SCH (07:44)
[2019-09-25] MEDS: PANTOPRAZOLE 40 MG TABLET. PO SCH (07:45)
[2019-09-25] MEDS: CITALOPRAM 10 MG TABLET. PO SCH (07:45)
[2019-09-25] MEDS: CLOPIDOGREL BISULFATE 75 MG TABLET PO SCH (07:45)
[2019-09-25] MEDS: LISINOPRIL 2.5 MG TABLET PO SCH (07:55)
[2019-09-25] MEDS: CARVEDILOL 3.125 MG TABLET PO SCH ×2 (07:56→20:14)
[2019-09-25] MEDS: CHOLECALCIFEROL (VITAMIN D3) 50,000 UNIT CAPSULE PO SCH (07:59)
[2019-09-25 08:19] VITALS: BP 175/75
[2019-09-25 08:35] LABS: BASO % 0 % (0-3); EOS # 0.1 x10^3/uL (0.0-0.7); EOS % 1 % (0-3); HEMATOCRIT 28.7 % (36.0-47.0); HEMOGLOBIN 9.4 g/dL (12.0-15.5); LYMPH # 0.9 x10^3/uL (1.0-4.8); LYMPH % 9 % (24-48); MEAN CORPUSCULAR HEMOGLOBIN 30 pg (25-35); MEAN CORPUSCULAR HGB CONC 33 g/dL (31-37); MEAN CORPUSCULAR VOLUME 92 fL (79-100); MONO # 1.3 x10^3/uL (0.0-1.1); MONO % 12 % (0-9); NEUT # 8.8 x10^3uL (1.8-7.7); NEUT % 79 % (31-73); PLATELET COUNT 184 x10^3/uL (140-400); RED BLOOD COUNT 3.12 x10^6/uL (3.50-5.40); RED CELL DISTRIBUTION WIDTH 15.7 % (11.5-14.5); WHITE BLOOD COUNT 11.1 x10^3/uL (4.0-11.0)
[2019-09-25] MEDS ORDERED: LISINOPRIL 2.5 MG TABLET PO SCH (09:00)
[2019-09-25] MEDS: LISINOPRIL 10 MG TABLET PO SCH (09:00)
--- NOTE | 2019-09-25 09:02 | PN ---
DATE: 09/25/2019 ATTENDING PHYSICIAN: Dr. Loza SUBJECTIVE: The patient is alert. She does not feel well. She has been off of narcotics. She has various aches and pains. She is alert and talkative and we had a fairly normal conversation. OBJECTIVE FINDINGS: VITAL SIGNS: Her blood pressure is 178/75, pulse is 74 and regular, temperature 98.4 degrees Fahrenheit, oxygen saturation 93% on 2 liters nasal cannula. HEENT: Head is without trauma. Pupils are reactive. Sclerae nonicteric. Oropharynx is clear. NECK: Supple, no bruits. LUNGS: Fairly good respirations. CARDIOVASCULAR: Showed regular heart tones. No gallops. Peripheral pulses palpable and full. ABDOMEN: Soft, no guarding or rebound tenderness. Bowel sounds are hypoactive. EXTREMITIES: Showed no cyanosis or edema. NEUROLOGIC: Speech is fluent. No focal deficits. PERTINENT LABORATORY DATA: Her chest x-ray yesterday followup showed persistent bilateral basilar airspace consolidation consistent with pneumonia, unchanged and lagging the clinical response. ASSESSMENT: 1. An 79-year-old female, custodial resident from [place]. She was admitted with altered mentation due to narcotic that has since resolved. 2. Early aspiration pneumonia. Chest x-ray is lagging the clinical response. 3. Chronic kidney disease stage 3, improved with hydration. 4. Polypharmacy. 5. Ventral hernia. 6. Essential hypertension. 7. Underlying dementia. 8. Degenerative arthritis. 9. Elevation of troponins in distress, asymptomatic. PLAN: 1. We have discontinued the IV fluids. 2. Continue IV antibiotics another day. 3. Up to chair as tolerated. 4. Increase lisinopril to 10 mg p.o. daily. 5. Narcotics have been held due to altered mentation. 6. Diabetic diet as tolerated. 7. Tentative discharge plan back to the custodial tomorrow, 09/25. SHERRIE LOZA MD DR: BIBIANA/kina JOB#: [id number] / [id number]
[2019-09-25 09:11] LABS: ALBUMIN 2.9 g/dL (3.4-5.0); ALBUMIN/GLOBULIN RATIO 0.9 (1.0-1.7); GFR 53.3; POTASSIUM 3.7 mmol/L (3.5-5.1); TOTAL BILIRUBIN 0.7 mg/dL (0.2-1.0)
[2019-09-25 09:12] LABS: CALCIUM 8.4 mg/dL (8.5-10.1)
--- NOTE | 2019-09-25 10:24 | NUR ---
Dr Webber here to see patient, plan is to discharge home to [facility] tomorrow. Verbal orders to increase Lisinopril to 10mg daily due to elevated BPs. Patient states she continues to have pain and a headache, prn Tylenol given and is resting comfortably now. Will continue to monitor.
[2019-09-25 11:09] VITALS: BP 142/55
[2019-09-25 17:32] VITALS: BP 160/65
[2019-09-25 23:12] VITALS: BP 156/63
[2019-09-26] MEDS: PIPERACILLIN/TAZOBACTAM 3.375 GM in IV NORMAL SALINE 50ML 50 ML IV SCH ×2 (00:33→09:09)
[2019-09-26 07:00] VITALS: BP 168/71
[2019-09-26] MEDS: ACETAMINOPHEN 325 MG TABLET PO PRN (09:03)
[2019-09-26] MEDS: CITALOPRAM 10 MG TABLET. PO SCH (09:03)
[2019-09-26] MEDS: PANTOPRAZOLE 40 MG TABLET. PO SCH (09:03)
[2019-09-26] MEDS: CLOPIDOGREL BISULFATE 75 MG TABLET PO SCH (09:04)
[2019-09-26] MEDS: LACTOBACILLUS RHAMNOSUS GG 1 CAPSULE. PO SCH (09:04)
[2019-09-26] MEDS: CARVEDILOL 3.125 MG TABLET PO SCH (09:04)
[2019-09-26] MEDS: ATORVASTATIN CALCIUM 10 MG TABLET. PO SCH (09:04)
[2019-09-26] MEDS: LISINOPRIL 10 MG TABLET PO SCH (09:04)
[2019-09-26] MEDS: CHOLECALCIFEROL (VITAMIN D3) 50,000 UNIT CAPSULE PO SCH (09:08)
--- NOTE | 2019-09-26 10:24 | DS ---
DATE OF DISCHARGE: 09/26/2019 ATTENDING PHYSICIAN: Dr. Loza. FINAL DISCHARGE DIAGNOSES: 1. Altered mentation due to narcotics, resolved. 2. Hypoxemia, resolved. 3. Early aspiration pneumonia, improved. 4. Type 2 diabetes mellitus. 5. Chronic kidney disease stage 3. 6. History of ventral hernia. 7. Essential hypertension. 8. Degenerative arthritis. 9. Underlying dementia. HISTORY OF PRESENT ILLNESS: The patient is a very pleasant 79-year-old female from a local [facility] in [place], [place]. She was admitted with decreased mentation, hypoxemia and altered mentation. She also had evidence of early aspiration pneumonia. PHYSICAL EXAMINATION: Please see the dictated note. PERTINENT LABORATORY AND X-RAY STUDIES: Her urine cultures grew out. No significant pathogens and her blood cultures were negative at 72 hours. Her hemoglobin on admission was 12.3 g/dL, with hemodilution that came down slightly to 9.4 g with a white count of 11,000. This will be followed up as an outpatient. Her chemistry panel showed a sodium of 138. Creatinine had been 2.0. With hydration and stopping her diuretic, it dropped to 1.0 mg/dL with a stable potassium at 3.7 mEq, sodium 138 mEq. Chest x-ray and CT on admission showed evidence of patchy airspace opacity in the lower lobes, left greater than the right. Some motion artifacts also identified. Followup x-rays showed slow resolution of x-ray, but excellent clinical response lagging the clinical response. COURSE IN THE HOSPITAL: The patient was admitted with a diagnosis of obtundation due to decreased metabolism of her pain meds due to decreased clearance. We held her narcotics simplify her meds. She had a diabetic diet. She did fairly well. She responded well to hydration. Creatinine came down from 2.0-1.0 mg/dL. IV fluids were stopped. She was started on empiric Zosyn. She received 4 full days of intravenous Zosyn with marked improvement. Followup x-rays showed lagging clinical response; however, her lungs were fairly clear with good air movement. She did not require more than 2 liters nasal cannula, which is her baseline. She was up and ambulating. Blood cultures and urine culture showed no growth at 72 hours. Physical therapy was able to assist her walking with the help of a walker with 1:1 assistance. She was able to sit in a chair and her mentation was quite alert and oriented. On the fifth hospital day, the patient was ready for discharge back to a [facility]. I recommended 6 more days of Augmentin 500/125 b.i.d. for 6 more days, dose adjusted for renal clearance. Her discharge meds include the following, they have been simplified. She should continue her Coreg 3.125 mg b.i.d., Celexa 10 mg daily, Plavix 75 mg daily, lisinopril increased to 10 mg daily, Protonix 40 mg daily, albuterol as needed, hydrocodone one 5 mg tablet q. 4 p.r.n. pain, insulin per sliding scale, Lidoderm patch, Protonix, Januvia 100 mg daily and once again the Augmentin 500/125 b.i.d. for 6 more days. At this time, I have held her trazodone due to sedation and simplified her daily regimen. I also stopped her Naprosyn p.r.n. The patient has advanced directives indicating she is a DNR per advanced directives. Her prognosis is guarded. She was discharged then from our hospital in stable condition with explicit directions and followup care. Total discharge time spent for 41 minutes. SHERRIE LOZA MD DR: BIBIANA/kina JOB#: [id number] / [id number] HARPER Regalado MD
[2019-09-26 11:00] VITALS: BP 144/62
--- NOTE | 2019-09-26 13:31 | NUR ---
Patient discharged to [facility] her which is her residence. Discussed discharge instruction with patient. Patient verbalized understanding of her condition and discharge care. Report was called to the RN at [facility]. All lines and monitors removed. Patient took all her personal belongings specifically her purse and all contents. Patient left the unit via wheelchair and was escorted to the front door where [facility] transported patient back to her residence.
== END 2019-09-26 13:34 | disposition home or self-care (01) | DRG 178 ==
LOC: ER 08:40 → 1 SOUTH 12:00
PROVIDERS: ADMIT Hospitalist; ATTEND Hospitalist
DX: J69.0 Pneumonitis due to inhalation of food and vomit (principal); I13.0 Hypertensive heart and chronic kidney disease with heart failure and stage 1 through stage 4 chronic kidney disease, or unspecified chronic kidney disease; E11.22 Type 2 diabetes mellitus with diabetic chronic kidney disease; F03.90 Unspecified dementia, unspecified severity, without behavioral disturbance, psychotic disturbance, mood disturbance, and anxiety; I50.9 Heart failure, unspecified; J44.9 Chronic obstructive pulmonary disease, unspecified; T40.605A Adverse effect of unspecified narcotics, initial encounter; K43.9 Ventral hernia without obstruction or gangrene; R41.82 Altered mental status, unspecified; M19.90 Unspecified osteoarthritis, unspecified site; N18.3 Chronic kidney disease, stage 3 (moderate); R09.02 Hypoxemia; Z66 Do not resuscitate; Z79.84 Long term (current) use of oral hypoglycemic drugs; Z85.3 Personal history of malignant neoplasm of breast; Z90.11 Acquired absence of right breast and nipple; F32.9 Major depressive disorder, single episode, unspecified; K21.9 Gastro-esophageal reflux disease without esophagitis
CPT/HCPCS: 36415; 51702; 70450; 71045; 71250; 74176; 80048; 80053; 81001; 82140; 82553; 82803; 82947; 83605; 83690; 83735; 84484; 85025; 85027; 85610; 85730; 87040; 87086; 93005; 96365; 96368; 96375; 96376; J2310; J2405; J2543; J3475; 97110; 97530; 97535; 99285-25; J7030

== ENCOUNTER 2019-09-29 19:38 | Emergency (ER) | payer OTHER ==
[~2019-09-29] VITALS: Ht 162.6 cm; Wt 62.5 kg
[~2019-09-29 19:38] MED LIST changes: +ACET500T68 PO; +ALBU2.5V8 INH; +ATOR10TA60 PO; +CARV3.12 PO; +CHOL500021 PO; +CITA10TA4 PO; +CLOP75TA PO; +DICL100G28 TP; +FURO-69 PO; +GUAI400T78 PO; +HYDR-3165 PO; +INSU100I17 SQ; +IPRA3AMP29 NEB; +LIDO700A21 TP; +LISI2.5T PO; +LOPE-101 PO; +METO5TAB55 PO; +NAPR-514 PO; +PANT20TA58 PO; +TRAZ-120 PO
[2019-09-29] MEDS ORDERED: IV NORMAL SALINE 1,000ML 1,000 ML IV SCH (20:00)
[2019-09-29 20:10] LABS: CALCIUM 9.1 mg/dL (8.5-10.1); CREATININE 1.2 mg/dL (0.6-1.0); GFR 43.2; POTASSIUM 3.5 mmol/L (3.5-5.1)
[2019-09-29 20:11] LABS: BASO % 0 % (0-3); EOS # 0.1 x10^3/uL (0.0-0.7); EOS % 1 % (0-3); HEMATOCRIT 29.9 % (36.0-47.0); LYMPH # 0.9 x10^3/uL (1.0-4.8); LYMPH % 12 % (24-48); MEAN CORPUSCULAR HEMOGLOBIN 30 pg (25-35); MEAN CORPUSCULAR HGB CONC 33 g/dL (31-37); MEAN CORPUSCULAR VOLUME 91 fL (79-100); MONO # 0.8 x10^3/uL (0.0-1.1); MONO % 11 % (0-9); NEUT # 5.7 x10^3uL (1.8-7.7); NEUT % 77 % (31-73); PLATELET COUNT 292 x10^3/uL (140-400); RED BLOOD COUNT 3.28 x10^6/uL (3.50-5.40); RED CELL DISTRIBUTION WIDTH 16.1 % (11.5-14.5); WHITE BLOOD COUNT 7.4 x10^3/uL (4.0-11.0)
[2019-09-29 20:23] LABS: ALBUMIN 2.8 g/dL (3.4-5.0); DIRECT BILIRUBIN 0.2 mg/dL (0.0-0.2); MAGNESIUM 1.6 mg/dL (1.8-2.4); TOTAL BILIRUBIN 0.5 mg/dL (0.2-1.0); TOTAL PROTEIN 5.8 g/dL (6.4-8.2)
[2019-09-29 20:38] LABS: BARBITURATES NEG (NEG); BENZODIAZEPINES POS (NEG); CANNABINOIDS NEG (NEG); COCAINE NEG (NEG); METHADONE NEG (NEG); OPIATES NEG (NEG); PHENCYCLIDINE NEG (NEG)
[2019-09-29 20:41] LABS: CLARITY,URINE CLOUDY; COLOR,URINE YELLOW
[2019-09-29 20:43] LABS: BILIRUBIN,URINE NEG (NEG); GLUCOSE,URINE NEG (NEG); NITRITE,URINE NEG (NEG); UROBILINOGEN,URINE 0.2 mg/dL (0.2 mg/dL)
[2019-09-29 20:44] LABS: AMORPHOUS SEDIMENT,UR PRESENT /HPF; BACTERIA,URINE 0 /HPF (0-FEW); SQUAMOUS EPITHELIAL CELL,UR MANY /LPF
--- NOTE | 2019-09-29 20:46 | RAD ---
CT CODE STROKE HEAD WO History: Reason: acute mental status change, seizures / Spl. Instructions: / History: Comparison: September 22, 2019 Technique: Noncontrast CT imaging was performed of the head. Exposure: One or more of the following individualized dose reduction techniques were utilized for this examination: 1. Automated exposure control 2. Adjustment of the mA and/or kV according to patient size 3. Use of iterative reconstruction technique. Findings: No intracranial hemorrhage. No mass effect. No hydrocephalus. Hypoattenuation within the right caudate, not definitely seen previously Mild foci of decreased aeration within the hemispheric white matter, most often due to chronic microvascular ischemia, unchanged. Intracranial atheromatous calcification. Imaged orbits are unremarkable. Right sphenoid sinus mucosal thickening and secretions. No acute calvarial fracture. Impression: 1. No acute intracranial hemorrhage. 2. Hypodensity within the right caudate, may relate to artifact or ischemia. Recommend MRI without and with contrast to further evaluate. FOR INTERNAL CODING PURPOSES Critical result: Findings discussed with ROM GUZMAN at 09/29/2019 8:36 PM. RESULT CODE: (C) Electronically signed by: Tam Gomes DO (09/29/2019 8:43 PM) [facility]
--- NOTE | 2019-09-29 20:46 | RAD ---
CT scan of the cervical spine without contrast 09/29/2019 Clinical history: Neck injury. Technique: Unenhanced, contiguous, 0.625 mm axial sections were obtained through the cervical spine. 2.5 mm reconstructed axial and 2 mm coronal and sagittal reconstructed images were obtained. One or more of the following individualized dose reduction techniques were utilized for this study: 1. Automated exposure control. 2. Adjustment of the mA and/or kV according to patient size. 3. Use of iterative reconstruction technique. Findings: Images from the study are degraded by patient motion. Sagittal and coronal reconstructed images demonstrate mild lateral curvature of the cervical spine, convex to the left. ET and NG tubes are noted in place. There is straightening of the normal cervical lordosis. Degenerative changes consisting of disc space narrowing, vertebral endplate sclerosis and mild to moderate anterior and posterior vertebral body osteophyte formation are seen involving predominantly the C5-6 disc space. No fracture or subluxation of the cervical vertebrae is seen. Degenerative changes are seen involving the uncovertebral and facet joints throughout the cervical disc spaces. Atherosclerotic calcification is seen in the region carotid bifurcations. There is a small left pleural effusion. Increased opacity is seen involving the left upper lobe which may represent an area of scarring. Impression: No fracture or subluxation of the cervical vertebra is identified. Electronically signed by: Dominic Latif MD (09/29/2019 8:43 PM) [id number]
[2019-09-29 20:47] LABS: AMPHETAMINE/METHAMPHETAMINE NEG (NEG)
--- NOTE | 2019-09-29 20:49 | RAD ---
EXAM: Chest, single view. HISTORY: Endotracheal tube and orogastric tube placement. COMPARISON: 09/24/2019 FINDINGS: A frontal view of the chest is obtained. There is an endotracheal tube within the distal trachea. There is a nasogastric tube within the stomach. There has been interval increase in a suspected small left pleural effusion with left lower lobe infiltrate. There is no pneumothorax. The heart is normal in size. There are few calcified granulomas. IMPRESSION: 1. Endotracheal tube and nasogastric tube within expected position. 2. Suspected small left pleural effusion and left lower lobe infiltrate, increased compared to the prior study. Electronically signed by: Chayo Pabon MD (09/29/2019 8:46 PM) [facility]
[2019-09-29] MEDS ORDERED: IV RINGERS SOLUTION,LACTATED 1,000 ML IV ONE (21:00)
[2019-09-29] MEDS ORDERED: VANCOMYCIN PER PHARMACY MC PRN (21:00)
[2019-09-29] MEDS ORDERED: VANCOMYCIN 1 GM VIAL. ONE (21:09)
[2019-09-29] MEDS ORDERED: IV NORMAL SALINE 250ML 250 ML ONE (21:09)
[2019-09-29] MEDS ORDERED: cefTRIAXone IM 1 GM VIAL IM ONE (21:30)
[2019-09-29] MEDS ORDERED: VANCOMYCIN 1 GM in IV NORMAL SALINE 250ML 250 ML IV ONE (21:30)
[2019-09-29] MEDS ORDERED: ENOXAPARIN ** NOTE DOSE ** SYRINGE SQ ONE (21:30)
[2019-09-29] MEDS ORDERED: FUROSEMIDE 40 MG/4 ML VIAL IVP ONE (21:30)
[2019-09-29 21:40] LABS: % BANDS 3 % (0-9); % EOS 1 % (0-5); % LYMPHS 10 % (24-48); % METAS 1 % (0-0); % MONOS 11 % (0-10); % SEGS 74 % (35-66); PLT ESTIMATE ADEQUATE (ADEQUATE)
[2019-09-29 21:51] LABS: BGAS PH 7.44 (7.35-7.45)
[2019-09-29] MEDS ORDERED: PROPOFOL 10,000 MCG/ML (20ML) VIAL IV ONE (23:00)
[2019-09-29] MEDS ORDERED: LIDOCAINE 2% SYRINGE 100 MG/5 ML DISP.SYRIN. ONE (23:00)
[2019-09-29] MEDS ORDERED: MIDAZOLAM HCL PF 5 MG/5 ML VIAL. ONE (23:00)
[2019-09-29] MEDS ORDERED: SUCCINYLCHOLINE 200 MG/10 ML VIAL. ONE (23:00)
--- NOTE | 2019-09-29 23:18 | RAD ---
AP portable chest radiograph 09/29/2019 Clinical History: Postcentral line attempt. An AP erect portable digital radiograph of the chest was obtained. Comparison study is dated earlier the same day at 2017 hours. The ET and NG tube are unchanged in position. Surgical clips overlie the region of the GE junction. The cardiac silhouette is mildly enlarged. Atherosclerotic calcification of the thoracic aorta is seen. The thoracic aorta is mildly tortuous. No pneumothorax is noted. Left lower lobe atelectasis and/or infiltrate is seen, unchanged. There is a small left pleural effusion. The osseous structures are unchanged. Impression: No pneumothorax is seen. Electronically signed by: Dominic Latif MD (09/29/2019 11:15 PM) [id number]
--- NOTE | 2019-09-30 01:06 | EKG ---
[address] [address] Test Date: 2019-09-29 Test Time: 20:38:31 Pat Name: JEFFY CORONA Department: Room: Gender: F [id number] Programmer: : 1940 Requested By: ROM GUZMAN Order Number: [id number] Reading MD: Measurements Intervals [place] Rate: 75 P: 90 HI: 128 QRS: 63 QRSD: 86 T: 64 QT: 430 QTc: 483 Interpretive Statements SINUS RHYTHM LOW LIMB LEAD VOLTAGE PROLONGED QT NO SPECIFIC ECG ABNORMALITIES RI6.02 No previous ECG available for comparison
[2019-09-30 01:27] VITALS: BP 200/82
--- NOTE | 2019-09-30 02:17 | PHYS DOC ---
Past History Past Medical History: Anemia, Anxiety, Arthritis, Cancer, CHF, COPD, Dementia, Depression, Diabetes, GERD, Heart Disease, Hypertension, Other Past Surgical History: Other Additional Past Surgical Histo: Right mastectomy Alcohol Use: None Drug Use: None General Adult EDM: Chief Complaint: SEIZURE HPI: HPI: Pt. non-verbal,non-response, no gag - intubated with glide scope shortly after arrival. See Rapid Response Flow Sheet. Pt. transfer from [facility] after prolonged Tonic Clonic Seizure. Pt. per principal android developer require 7 1/2 mg of Versed IV to resolve tonic clonic seizure. Pt. a resident of the [facility] since 07-27. No recent changes in meds. Follows with Dr. Jacob. Patient has past medical diagnosis of generalized muscle deconditioning, osteoporosis, dyspnea, hyperlipidemia, nutritional deficiency, major depressive disorder recurrent, glucoma, GERD, chronic pain, gait disorder, insomnia, COPD, cognitive communication patient deficit, diastolic and systolic dysfunction- congestive heart failure, diabetes, essenti al hypertension, history of bronchitis and bronchospasm, breast cancer with right mastectomy. Patient is a 79 year old female who presents with no previous hx of seizure disorder. No history of recent fevers. No specific ill contacts. No recent travel outside [facility]. Son in law Bernadine Velasco- [phone], . Review of Systems: Review of Systems: Constitutional: Denies fever or chills Eyes: Denies change in visual acuity HENT: Denies nasal congestion or sore throat Respiratory: Denies cough or shortness of breath Cardiovascular: Denies chest pain or edema GI: Denies abdominal pain, nausea, vomiting, bloody stools or diarrhea : Denies dysuria Musculoskeletal: Denies back pain or joint pain Integument: Denies rash Neurologic: Denies headache, focal weakness or sensory changes Endocrine: Denies polyuria or polydipsia Lymphatic: Denies swollen glands Psychiatric: Denies depression or anxiety Heart Score: HEART Score for Chest Pain: HEART Score for Chest Pain Response (Comments) Value History Moderately Suspicious 1 ECG Nonspecific Repolarizatio 1 Age > 65 2 Risk Factors 1 or 2 Risk Factors 1 Troponin < Normal Limit 0 Total 5 Risk Factors: Risk Factors: DM, Current or recent (<one month) smoker, HTN, HLP, family history of CAD, obesity. Risk Scores: Score 0 - 3: 2.5% MACE over next 6 weeks - Discharge Home Score 4 - 6: 20.3% MACE over next 6 weeks - Admit for Clinical Observation Score 7 - 10: 72.7% MACE over next 6 weeks - Early Invasive Strategies Family History: Family History: Not currently available Current Medications: Current Meds: Current Medications Medications (Trade) Dose Ordered Sig/Candice Start Time Stop Time Status Last Admin Dose Admin Ceftriaxone Sodium (Rocephin Im) 1 gm 1X ONCE 09/29/19 21:30 09/29/19 21:31 DC 09/29/19 21:30 1 GM Enoxaparin Sodium (Lovenox 60mg Syringe) 60 mg 1X ONCE 09/29/19 21:30 09/29/19 21:31 DC 09/29/19 23:55 60 MG Furosemide (Lasix) 40 mg 1X ONCE 09/29/19 21:30 09/29/19 21:31 DC 09/29/19 23:30 40 MG Lactated Ringer's 1,000 ml @ 2,000 mls/hr 1X ONCE 09/29/19 21:00 09/29/19 21:29 DC 09/29/19 20:50 2,000 MLS/HR Lorazepam (Ativan Inj) 2 mg 1X ONCE 09/30/19 00:30 09/30/19 00:31 DC 09/29/19 22:54 2 MG Sodium Chloride 250 ml @ As Directed STK-MED ONCE 09/29/19 21:09 09/29/19 21:09 DC Vancomycin HCl (Vanco Per Pharmacy) 1 each PRN DAILY PRN 09/29/19 21:00 Vancomycin HCl (Vancomycin) 1 gm STK-MED ONCE 09/29/19 21:09 09/29/19 21:10 DC Vancomycin HCl 1 gm/Sodium Chloride 250 ml @ 250 mls/hr 1X ONCE 09/29/19 21:30 09/29/19 22:29 DC 09/29/19 23:30 250 MLS/HR Allergies: Allergies: Allergies Coded Allergies Type Severity Reaction Last Updated Verified aspirin Allergy Intermediate 06/02/14 Yes metformin Allergy Intermediate 06/02/14 Yes corn Adverse Reaction Intermediate Diarrhea 06/02/14 Yes Uncoded Allergies Type Severity Reaction Last Updated Verified greenbeans Adverse Reaction Intermediate Diarrhea 06/02/14 Physical Exam: PE: Constitutional: in acute respiratory distress, morbidly ill in appearance. [] HENT: Normocephalic, atraumatic, bilateral external ears normal, oropharynx moist, no oral exudates, nose normal. [] No gag. Eyes: Pupils responsive to light with consensual reflex Neck: Normal range of motion, no tenderness, supple, no stridor. [] Trachea midline Cardiovascular:Heart rate regular rhythm, PMI to the left Lungs & Thorax: Bilateral breath sounds coarse with rhonchi and crackles throughout on auscultation [] mastectomy scar on right Abdomen: Bowel sounds decreased, soft, no tenderness, no masses, no pulsatile masses. Old surgery scar Skin: Warm, dry, no erythema, no rash. Poor turgor. Distal cyanosis Extremities: Peripheral cyanosis, no clubbing, arthritic changes-no response to noxious stimuli Neurologic: No response to noxious stimuli Current Patient Data: Labs: Laboratory Tests Test 09/29/19 19:45 09/29/19 20:48 09/29/19 23:35 White Blood Count 7.4 x10^3/uL (4.0-11.0) Red Blood Count 3.28 x10^6/uL (3.50-5.40) L Hemoglobin 10.0 g/dL (12.0-15.5) L Hematocrit 29.9 % (36.0-47.0) L Mean Corpuscular Volume 91 fL (79-100) Mean Corpuscular Hemoglobin 30 pg (25-35) Mean Corpuscular Hemoglobin Concent 33 g/dL (31-37) Red Cell Distribution Width 16.1 % (11.5-14.5) H Platelet Count 292 x10^3/uL (140-400) Neutrophils (%) (Auto) 77 % (31-73) H Lymphocytes (%) (Auto) 12 % (24-48) L Monocytes (%) (Auto) 11 % (0-9) H Eosinophils (%) (Auto) 1 % (0-3) Basophils (%) (Auto) 0 % (0-3) Neutrophils # (Auto) 5.7 x10^3uL (1.8-7.7) Lymphocytes # (Auto) 0.9 x10^3/uL (1.0-4.8) L Monocytes # (Auto) 0.8 x10^3/uL (0.0-1.1) Eosinophils # (Auto) 0.1 x10^3/uL (0.0-0.7) Basophils # (Auto) 0.0 x10^3/uL (0.0-0.2) Segmented Neutrophils % 74 % (35-66) H Band Neutrophils % 3 % (0-9) Lymphocytes % 10 % (24-48) L Monocytes % 11 % (0-10) H Eosinophils % 1 % (0-5) Metamyelocytes % 1 % (0-0) H Platelet Estimate Adequate (ADEQUATE) Prothrombin Time 10.7 SEC (9.4-11.4) Prothrombin Time INR 1.0 (0.9-1.1) Activated Partial Thromboplast Time 26 SEC (23-33) D-Dimer (Kendra) 1.05 mg/L (0.00-0.50) H Urine Collection Type U cath Urine Color Yellow Urine Clarity Cloudy Urine pH 5.5 Urine Specific [place] 1.025 Urine Protein >100 mg/dl (NEG-TRACE) Urine Glucose (UA) Neg mg/dL (NEG) Urine Ketones (Stick) 40 mg/dL (NEG) Urine Blood Mod (NEG) Urine Nitrite Neg (NEG) Urine Bilirubin Neg (NEG) Urine Urobilinogen Dipstick 0.2 mg/dL (0.2 mg/dL) Urine Leukocyte Esterase Neg (NEG) Urine RBC 6-10 /HPF (0-2) Urine WBC 1-4 /HPF (0-4) Urine Squamous Epithelial Cells Many /LPF Urine Amorphous Sediment Present /HPF Urine Bacteria 0 /HPF (0-FEW) Sodium Level 141 mmol/L (136-145) Potassium Level 3.5 mmol/L (3.5-5.1) Chloride Level 102 mmol/L (98-107) Carbon Dioxide Level 26 mmol/L (21-32) Anion Gap 13 (6-14) Blood Urea Nitrogen 8 mg/dL (7-20) Creatinine 1.2 mg/dL (0.6-1.0) H Estimated GFR (Cockcroft-Gault) 43.2 Glucose Level 145 mg/dL (70-99) H Lactic Acid Level 4.6 mmol/L (0.4-2.0) *H 2.1 mmol/L (0.4-2.0) H Calcium Level 9.1 mg/dL (8.5-10.1) Magnesium Level 1.6 mg/dL (1.8-2.4) L Total Bilirubin 0.5 mg/dL (0.2-1.0) Direct Bilirubin 0.2 mg/dL (0.0-0.2) Aspartate Amino Transferase (AST) 18 U/L (15-37) Alanine Aminotransferase (ALT) 13 U/L (14-59) L Alkaline Phosphatase 45 U/L (46-116) L Creatine Kinase 59 U/L (26-192) Troponin I Quantitative 0.075 ng/mL (0-0.055) H AY-Jcr-M-Type Natriuretic Peptide 78966 pg/mL (0-449) H Total Protein 5.8 g/dL (6.4-8.2) L Albumin 2.8 g/dL (3.4-5.0) L Lipase 129 U/L (73-393) Urine Opiates Screen Neg (NEG) Urine Methadone Screen Neg (NEG) Urine Barbiturates Neg (NEG) Urine Phencyclidine Screen Neg (NEG) Urine Amphetamine/Methamphetamine Neg (NEG) Urine Benzodiazepines Screen Pos (NEG) Urine Cocaine Screen Neg (NEG) Urine Cannabinoids Screen Neg (NEG) Urine Ethyl Alcohol Neg (NEG) Blood pH 7.44 (7.35-7.45) Blood Gas PCO2 39 mmHg (35-45) Blood Gas PO2 212 mmHg (71-100) H Blood Gas HCO3 26 mmol/L (22-26) Arterial Bld O2 Saturation (Calc) 100 % (92-99) H FiO2 70 % Vital Signs: Vital Signs Date Time Temp Pulse Resp B/P (MAP) Pulse Ox O2 Delivery O2 Flow Rate FiO2 09/29/19 20:53 100 09/29/19 20:28 Ventilator EKG: EKG: My interpretation EKG shows a sinus rhythm at 75 bpm. She has low volume in leads. Does have prolonged QT interval of 430 ms QTc interval is 483 ms no findings of acute STEMI or contralateral changes [] Radiology/Procedures: Radiology/Procedures: Signed PATIENT: JEFFY CORONA ACCOUNT: [id number] : 1940 LOCATION: ER AGE: 79 SEX: F EXAM STATUS: PRE ER ORD. PHYSICIAN: ROM GUZMAN MD REASON: acute mental status change, seizures PROCEDURE: CT CODE STROKE HEAD WO CT CODE STROKE HEAD WO History: Reason: acute mental status change, seizures / Spl. Instructions: / History: Comparison: September 22, 2019 Technique: Noncontrast CT imaging was performed of the head. Exposure: One or more of the following individualized dose reduction techniques were utilized for this examination: 1. Automated exposure control 2. Adjustment of the mA and/or kV according to patient size 3. Use of iterative reconstruction technique. Findings: No intracranial hemorrhage. No mass effect. No hydrocephalus. Hypoattenuation within the right caudate, not definitely seen previously Mild foci of decreased aeration within the hemispheric white matter, most often due to chronic microvascular ischemia, unchanged. Intracranial atheromatous calcification. Imaged orbits are unremarkable. Right sphenoid sinus mucosal thickening and secretions. No acute calvarial fracture. Impression: 1. No acute intracranial hemorrhage. 2. Hypodensity within the right caudate, may relate to artifact or ischemia. Recommend MRI without and with contrast to further evaluate. FOR INTERNAL CODING PURPOSES Critical result: Findings discussed with ROM GUZMAN at 09/29/2019 8:36 PM. RESULT CODE: (C) Electronically signed by: Tam Gomes DO (09/29/2019 8:43 PM) [facility] DICTATED AND SIGNED BY: TAM GOMES DO DATE: 09/29/192042 CC: ROM GUZMAN MD; VITALIY JACOB MD ~ [address] [address] IMAGING REPORT Signed PATIENT: JEFFY CORONA ACCOUNT: [id number] : 1940 LOCATION: ER AGE: 79 SEX: F EXAM STATUS: PRE ER ORD. PHYSICIAN: ROM GUZMAN MD REASON: acute mental status change, seizures PROCEDURE: CT CERVICAL SPINE WO CONTRAST CT scan of the cervical spine without contrast 09/29/2019 Clinical history: Neck injury. Technique: Unenhanced, contiguous, 0.625 mm axial sections were obtained through the cervical spine. 2.5 mm reconstructed axial and 2 mm coronal and sagittal reconstructed images were obtained. One or more of the following individualized dose reduction techniques were utilized for this study: 1. Automated exposure control. 2. Adjustment of the mA and/or kV according to patient size. 3. Use of iterative reconstruction technique. Findings: Images from the study are degraded by patient motion. Sagittal and coronal reconstructed images demonstrate mild lateral curvature of the cervical spine, convex to the left. ET and NG tubes are noted in place. There is straightening of the normal cervical lordosis. Degenerative changes consisting of disc space narrowing, vertebral endplate sclerosis and mild to moderate anterior and posterior vertebral body osteophyte formation are seen involving predominantly the C5-6 disc space. No fracture or subluxation of the cervical vertebrae is seen. Degenerative changes are seen involving the uncovertebral and facet joints throughout the cervical disc spaces. Atherosclerotic calcification is seen in the region carotid bifurcations. There is a small left pleural effusion. Increased opacity is seen involving the left upper lobe which may represent an area of scarring. Impression: No fracture or subluxation of the cervical vertebra is identified. Electronically signed by: Dominic Latif MD (09/29/2019 8:43 PM) [id number] DICTATED AND SIGNED BY: DOMINIC LATIF MD DATE: 09/29/192042 CC: ROM GUZMAN MD; VITALIY JACOB MD ~ [][place] [address] IMAGING REPORT Signed PATIENT: JEFFY CORONA ACCOUNT: [id number] : 1940 LOCATION: ER AGE: 79 SEX: F EXAM STATUS: REG ER ORD. PHYSICIAN: ROM GUZMAN MD REASON: post central line attempt PROCEDURE: CHEST AP ONLY AP portable chest radiograph 09/29/2019 Clinical History: Postcentral line attempt. An AP erect portable digital radiograph of the chest was obtained. Comparison study is dated earlier the same day at 2017 hours. The ET and NG tube are unchanged in position. Surgical clips overlie the region of the GE junction. The cardiac silhouette is mildly enlarged. Atherosclerotic calcification of the thoracic aorta is seen. The thoracic aorta is mildly tortuous. No pneumothorax is noted. Left lower lobe atelectasis and/or infiltrate is seen, unchanged. There is a small left pleural effusion. The osseous structures are unchanged. Impression: No pneumothorax is seen. Electronically signed by: Dominic Latif MD (09/29/2019 11:15 PM) [id number] DICTATED AND SIGNED BY: DOMINIC LATIF MD DATE: 09/29/19 5985 CC: ROM GUZMAN MD; VITALIY JACOB MD ~ Course & Med Decision Making: Course & Med Decision Making Pertinent Labs and Imaging studies reviewed. (See chart for details) Discussed presentation, testing and treatment plan with , will accept pt. in transfer to [facility]. Procedure Note-emergent intubation 7.5 ET to 22 cm gum with glide scope. Breath sounds bilaterally, with no breath sounds over the stomach. Had CO2 and fogging tube. Chest x-ray show adequate positioning. See critical care or rapid response notes for details OG placement-placed with return of gastric contents placement confirmed by auscultation and follow-up chest x-ray Need for emergent line placement and labs- Right external Juglar attempt-IV access= -Infiltrated Lt. I J x 2- with sterile drape and tech. Unable to cannulate by c Seldinger technique. Chest x-ray post showed no pneumothorax. Right femoral-sterile technique drape gown gloves hat-cannulated right femoral vein by Seldinger technique with return of blood all [address] with Biopatch and sterile dressing. Critical care 90 minutes Impression: 1. Respiratory failure 2. History of prolonged tonic-clonic seizure 3. Anemia hemoglobin 10 4. Mild elevation in creatinine 1.2 5. Elevated d-dimer 1.05 6. Lactic acid elevated at 4.5 7. CHF history of systolic and diastolic dysfunction-BNP equals 16, 104. 8. Malnutrition albumin 2.8 [] Dragon Disclaimer: Dragon Disclaimer: This electronic medical record was generated, in whole or in part, using a voice recognition dictation system. Departure Departure: Impression: Primary Impression: Seizure Disposition: 05 TRANSFER OTHER Condition: CRITICAL Patient Instructions: Respiratory Failure Additional Instructions: Transfer to [facility]- Dr. Dorman, MRI, Pulmonary Justification of Admission: Justification of Admission: Justification of Admission Dx: N/A Maribell Disclaimer This chart was dictated in whole or in part using Voice Recognition software in a busy, high-work load, and often noisy Emergency Department environment. It may contain unintended and wholly unrecognized errors or omissions. Dragon Disclaimer This chart was dictated in whole or in part using Voice Recognition software in a busy, high-work load, and often noisy Emergency Department environment. It may contain unintended and wholly unrecognized errors or omissions. RMO GUZMAN MD Sep 30, 2019 02:17
== END 2019-09-30 01:59 | disposition short-term general hospital (02) ==
LOC: ER 19:38
DX: J96.90 Respiratory failure, unspecified, unspecified whether with hypoxia or hypercapnia (principal); G40.89 Other seizures; Z20.828 Contact with and (suspected) exposure to other viral communicable diseases; D64.9 Anemia, unspecified; R79.1 Abnormal coagulation profile; R74.0 Nonspecific elevation of levels of transaminase and lactic acid dehydrogenase [LDH]; I11.0 Hypertensive heart disease with heart failure; I50.40 Unspecified combined systolic (congestive) and diastolic (congestive) heart failure; E46 Unspecified protein-calorie malnutrition; F41.9 Anxiety disorder, unspecified; M19.90 Unspecified osteoarthritis, unspecified site; J44.9 Chronic obstructive pulmonary disease, unspecified; F03.90 Unspecified dementia, unspecified severity, without behavioral disturbance, psychotic disturbance, mood disturbance, and anxiety; F32.9 Major depressive disorder, single episode, unspecified; K21.9 Gastro-esophageal reflux disease without esophagitis; E78.5 Hyperlipidemia, unspecified; G89.29 Other chronic pain; E11.9 Type 2 diabetes mellitus without complications; Z68.23 Body mass index [BMI] 23.0-23.9, adult; Z86.2 Personal history of diseases of the blood and blood-forming organs and certain disorders involving the immune mechanism; Z88.6 Allergy status to analgesic agent; Z88.8 Allergy status to other drugs, medicaments and biological substances
CPT/HCPCS: 31500; 36415; 36556; 36600; 51702; 70450; 71045; 72125; 80048; 80076; 80307; 81001; 82550; 82803; 83605; 83690; 83735; 83880; 84443; 84484; 85007; 85025; 85379; 85610; 85730; 87040; 93005; 96361; 96365; 96372; 96375; 99291; 99292; C9803; J0330; J0696; J1650; J1940; J2060; J2250; J2704; J3370; J7030; J7050; J7120; U0003; 94002; 94760